=== PATIENT | male | born 1960 | race Caucasian/White ===

== ENCOUNTER 2019-06-11 21:04 | Emergency (ER) | payer SELFPAY ==
[~2019-06-11] VITALS: Ht 175.3 cm; Wt 80.0 kg
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
--- NOTE | 2019-06-11 22:27 | RAD ---
Exam: CT head, maxillofacial and cervical spine INDICATION: Trauma TECHNIQUE: Sequential axial images through the head, neck facial and cervical spine were obtained without the administration of IV contrast. Comparisons: None FINDINGS: Head: No focal parenchymal lesion or hemorrhage is identified. There is no midline shift or sulcal effacement. No acute vascular territory infarction is identified. Junior-white distinction is preserved. The ventricular system is within normal limits without compression hydrocephalus. The basal cisterns are well maintained. Face: The visualized portions of the paranasal sinuses and mastoid air cells are well-pneumatized. Mildly displaced fracture through the right mandibular ramus. Additionally there is a fracture through the left angle of the mandible. Globes and intraorbital contents are normal. Cervical spine: Vertebral body heights and alignment are well-maintained. Fracture through the cervical spine is not identified. Multilevel spondylotic change in the cervical spine with degenerative disc disease greatest at C5-C6 and C6-C7. Mild bilateral facet arthropathy is also noted in the cervical spine. Visualized paraspinal soft tissues are unremarkable. IMPRESSION: 1. Vertically oriented fractures through the angle the mandible bilaterally. This appears mildly displaced. 2. No acute intracranial abnormality. 3. Negative CT C-spine for acute traumatic injury. Exposure: One or more of the following in the visualized dose reduction techniques were utilized for this examination: 1. Automated exposure control 2. Adjustment of the MA and/or KV according to patient size Use of iterative of reconstructive technique Electronically signed by: Lilo Escobedo MD (06/11/2019 10:25 PM) [id number]
[2019-06-11 22:40] LABS: BASO % 0 % (0-3); EOS # 0.1 x10^3/uL (0.0-0.7); EOS % 1 % (0-3); HEMATOCRIT 45.7 % (39.0-53.0); HEMOGLOBIN 15.7 g/dL (13.0-17.5); LYMPH # 1.3 x10^3/uL (1.0-4.8); LYMPH % 19 % (24-48); MEAN CORPUSCULAR HEMOGLOBIN 33 pg (25-35); MEAN CORPUSCULAR HGB CONC 34 g/dL (31-37); MEAN CORPUSCULAR VOLUME 97 fL (79-100); MONO # 0.3 x10^3/uL (0.0-1.1); MONO % 4 % (0-9); NEUT # 5.3 x10^3/uL (1.8-7.7); NEUT % 75 % (31-73); PLATELET COUNT 289 x10^3/uL (140-400); RED BLOOD COUNT 4.71 x10^6/uL (4.30-5.70); RED CELL DISTRIBUTION WIDTH 14.3 % (11.5-14.5)
[2019-06-11] MEDS ORDERED: IV NORMAL SALINE 1000ML BAG 1,000 ML IV ONE (23:30)
[2019-06-11 23:39] LABS: CALCIUM 9.2 mg/dL (8.5-10.1); CREATININE 0.9 mg/dL (0.7-1.3); GFR 86.7; POTASSIUM 3.5 mmol/L (3.5-5.1)
[2019-06-11 23:45] LABS: PROTHROMBIN TIME PATIENT 13.3 SEC (11.7-14.0)
[2019-06-11 23:46] LABS: ACETAMIN < 2 mcg/ml (10-30); ALBUMIN 3.9 g/dL (3.4-5.0); ALBUMIN/GLOBULIN RATIO 1.1 (1.0-1.7); ETHANOL 178 mg/dL (0-10); SALIC < 2.8 mg/dL (2.8-20.0); TOTAL BILIRUBIN 0.3 mg/dL (0.2-1.0); TOTAL PROTEIN 7.3 g/dL (6.4-8.2)
[2019-06-12] VITALS: BP 141/73
--- NOTE | 2019-06-12 00:08 | EKG ---
[facility] [address] [place] [address] Test Date: 2019-06-11 Test Time: 22:20:36 Pat Name: SCHUYLER SHARMA Department: Room: Gender: M Rod Placer: : 1960 Requested By: FEDERICO LEMA Order Number: [id number] Reading MD: Measurements Intervals Effort Rate: 76 P: 27 WI: 194 QRS: 123 QRSD: 108 T: 41 QT: 402 QTc: 457 Interpretive Statements SINUS RHYTHM ABNORMAL RIGHT AXIS DEVIATION RIGHT VENTRICULAR HYPERTROPHY QRS(T) CONTOUR ABNORMALITY CONSIDER ANTEROSEPTAL MYOCARDIAL DAMAGE ABNORMAL ECG RI6.01 No previous ECG available for comparison
[2019-06-12] MEDS ORDERED: fentaNYL PF VIAL 100 MCG/2 ML VIAL IVP ONE (01:30)
== END 2019-06-12 01:12 | disposition short-term general hospital (02) ==
LOC: ER 21:04
DX: S02.609A Fracture of mandible, unspecified, initial encounter for closed fracture (principal); F10.20 Alcohol dependence, uncomplicated; M50.30 Other cervical disc degeneration, unspecified cervical region; Y90.6 Blood alcohol level of 120-199 mg/100 ml; R94.31 Abnormal electrocardiogram [ECG] [EKG]; Z88.0 Allergy status to penicillin; Y04.0XXA Assault by unarmed brawl or fight, initial encounter; Y93.89 Activity, other specified; Y92.89 Other specified places as the place of occurrence of the external cause; Y99.8 Other external cause status
CPT/HCPCS: 36415; 70450; 70486; 72125; 80053; 80329; 84484; 85025; 85610; 93005; 99285; G0480; J7030